=== PATIENT | male | born 1950 | race Hispanic/Latino ===

== ENCOUNTER 2017-01-10 16:39 | Emergency (ER) | payer MEDICARE, OTHER ==
[2017-01-10 16:47] VITALS: BP 164/107; RESP 20; TEMP 97.6; O2SAT 99
--- NOTE | 2017-01-10 17:02 | ED PDOC ---
HPI: General Adult Time Seen by Provider: 01/10/17 16:52 Chief Complaint (Nursing): Dizziness/Lightheaded Chief Complaint (Provider): dizziness History Per: Patient Onset/Duration Of Symptoms: Days (14) Current Symptoms Are (Timing): Intermittent Episodes Severity: Mild Additional Complaint(s): 66 year old male presents to ED with complaints of intermittent episodes of dizziness associated with frontal headache for 2 weeks. He states the symptoms worsen with certain head movements. Additionally reports for the past 3 days feeling cold like symptoms such as nasal congestion and ear fullness. Denies any fever, neck pain, vision changes, vomiting, chest pain, SOB. Past Medical History Reviewed: Historical Data, Nursing Documentation, Vital Signs Vital Signs: Last Vital Signs Temp 97.6 F 01/10/17 16:45 Pulse 87 01/10/17 17:35 Resp 20 01/10/17 16:45 BP 164/107 H 01/10/17 16:45 Pulse Ox 99 01/10/17 17:35 - Medical History PMH: Hypercholesterolemia - Surgical History Surgical History: Coronary Stent - Family History Family History: States: Unknown Family Hx - Living Arrangements Living Arrangements: With Family - Social History Current smoker - smoking cessation education provided: No Alcohol: None Drugs: Denies - Home Medications Home Medications: Ambulatory Orders Medication Instructions Recorded Amoxicillin/Clavulanate [Augmentin 1 tab PO BID #14 tab 01/10/17 875 MG-125 MG] - Allergies Allergies/Adverse Reactions: Allergies Allergy/AdvReac Type Severity Reaction Status Date / Time No Known Allergies Allergy Verified 01/10/17 16:43 Review of Systems Constitutional: Negative for: Fever Eyes: Negative for: Vision Change ENT: Positive for: Nose Congestion. Negative for: Ear Pain, Throat Pain Cardiovascular: Negative for: Chest Pain, Palpitations Respiratory: Negative for: Cough, Shortness of Breath Gastrointestinal: Negative for: Vomiting, Abdominal Pain, Diarrhea Skin: Negative for: Rash Neurological: Positive for: Headache, Dizziness. Negative for: Weakness, Numbness Physical Exam - Reviewed Nursing Documentation Reviewed: Yes Vital Signs Reviewed: Yes - Physical Exam Appears: Positive for: Well, Non-toxic, No Acute Distress Head Exam: Positive for: ATRAUMATIC, NORMAL INSPECTION (no swelling or tenderness), NORMOCEPHALIC Skin: Positive for: Warm, Dry Eye Exam: Positive for: Normal appearance, EOMI, PERRL. Negative for: Nystagmus ENT: Positive for: Pharynx Is (pink), TM Is/Are (pearly), Hearing Is (intact). Negative for: Sinus Pain/Drainage Neck: Positive for: Normal, Painless ROM Cardiovascular/Chest: Positive for: Regular Rate, Rhythm, Chest Non Tender. Negative for: Murmur Respiratory: Positive for: Normal Breath Sounds. Negative for: Rhonchi, Wheezing, Respiratory Distress Back: Positive for: Normal Inspection Extremity: Positive for: Normal ROM. Negative for: Tenderness, Pedal Edema, Deformity Neurologic/Psych: Positive for: Alert, fixture maker II-XII (grossly intact), Oriented, Mood/Affect (normal). Negative for: Motor/Sensory Deficits, Facial Droop - Laboratory Results Result Diagrams: 01/10/17 17:16 01/10/17 17:16 - ECG ECG: Positive for: Interpreted By Me, Viewed By Me ECG Rhythm: Positive for: Sinus Rhythm, 1st Degree Heart Block Rate: 87 O2 Sat by Pulse Oximetry: 99 Pulse Ox Interpretation: Normal Medical Decision Making Medical Decision Making: Impression: headache and dizziness Plan: * EKG * Labs * CT Head Progress: CT IMPRESSION: No acute intracranial pathology identified. Partial opacification of the left greater than right hypoplastic mastoid air cells; correlate clinically for possibility of mastoiditis Case discussed with Dr Mcpherson who agreed if not clinical significant then can discharge. Re-Eval: Patient seated comfortably in room in no distress. He has no dizziness or pain currently. Vital signs are stable and no fever. Patient denies any ear pain or pain around the mastoid. Area palpated with no swelling, erythema or tenderness. Explained results to patient and copy of Ct and lab reports was provided. Patient feels comfortable going home and will be discharged. Patient given follow up instructions with PCP. Instructed to return to ER if symptoms worsen or new symptoms arise including ear pain, mastoid pain, fever. Disposition - Clinical Impression Clinical Impression: Sinusitis - Patient ED Disposition Is Patient to be Admitted: No Counseled Patient/Family Regarding: Studies Performed, Diagnosis, Need For Followup, Rx Given - Disposition Referrals: Rigoberto Huffman MD [Staff Provider] - Disposition: Routine/Home Disposition Time: 17:46 Condition: STABLE Additional Instructions: Take antibiotic twice daily and be sure to finish taking all of antibiotic. Drink plenty of fluids. Please follow up with your primary doctor for further care. Return to the emergency department at any time if symptoms persist or worsen, especially develop any ear pain or pain behind ear. Prescriptions: Amoxicillin/Clavulanate [Augmentin 875 MG-125 MG] 1 tab PO BID #14 tab Instructions: Sinusitis (ED) Forms: [employer] (Croatian) - POA Present On Arrival: None
[2017-01-10 17:21] LABS: BASO % 0.3 % (0.0-2.0); EOS # 0.1 K/uL (0.0-0.7); EOS % 0.7 % (0.0-4.0); HEMATOCRIT 48.6 % (35.0-51.0); LYMPH # 0.9 K/uL (1.0-4.3); LYMPH % 11.9 % (20.0-40.0); MEAN CELL VOLUME 90.9 fl (80.0-94.0); MEAN CORPUSCULAR HEMOGLOBIN 29.9 pg (27.0-31.0); MEAN CORPUSCULAR HGB CONC 32.9 g/dL (33.0-37.0); MEAN PLATELET VOLUME 8.8 fl (7.2-11.7); MONO # 0.7 K/uL (0.0-0.8); MONO % 10.1 % (0.0-10.0); NEUT # 5.6 K/uL (1.8-7.0); RED CELL DISTRIBUTION WIDTH 13.8 % (11.5-14.5); WHITE BLOOD COUNT 7.3 K/uL (4.8-10.8)
[2017-01-10 17:32] LABS: ALB/GLOB RATIO 1.4 (1.0-2.1); CALCIUM 9.3 mg/dL (8.4-10.2); CARBON DIOXIDE 24 mmol/L (22-30); CHLORIDE 103 mmol/L (98-107); GFR AFRICAN-AMERICAN > 60; GLUCOSE,RANDOM 102 mg/dL (75-110); SODIUM 140 mmol/l (132-148)
--- NOTE | 2017-01-10 17:33 | CT ---
PROCEDURE: CT HEAD WITHOUT CONTRAST. HISTORY: headache and dizziness for 2 weeks COMPARISON: Noncontrast head CT performed 05/02/13 TECHNIQUE: Axial computed tomography images were obtained through the head/brain without intravenous contrast. Radiation dose: Total exam DLP = 958.32 mGy-cm. This CT exam was performed using one or more of the following dose reduction techniques: Automated exposure control, adjustment of the mA and/or kV according to patient size, and/or use of iterative reconstruction technique. FINDINGS: HEMORRHAGE: No intracranial hemorrhage. BRAIN: No mass effect or edema. The levi-white matter differentiation appears intact. Please note that MRI with diffusion imaging is more sensitive in the detection of acute ischemic event. VENTRICLES: Delta cisterna magna, anatomic variant. No hydrocephalus. CALVARIUM: Unremarkable. PARANASAL SINUSES: Unremarkable as visualized. No significant inflammatory changes. MASTOID AIR CELLS: Partial opacification of the left greater than right hypoplastic mastoid air cells; correlate clinically for possibility of mastoiditis. OTHER FINDINGS: None. IMPRESSION: No acute intracranial pathology identified. Partial opacification of the left greater than right hypoplastic mastoid air cells; correlate clinically for possibility of mastoiditis
[2017-01-10 17:36] LABS: ALKALINE PHOSPHATASE 66 U/L (38-126); ALT/SGPT 53 U/L (21-72); AST/SGOT 42 U/L (17-59); BLOOD UREA NITROGEN 16 mg/dl (9-20)
[2017-01-10 17:37] VITALS: PULSE 87
--- NOTE | 2017-01-11 12:08 | CARD ---
APPROVED REPORT EKG Measurement Heart [id number] <Conclusion> Sinus rhythm with 1st degree AV block Possible Left atrial enlargement Low voltage QRS Borderline ECG
== END 2017-01-10 17:58 | disposition home or self-care (01) ==
LOC: H.ER 16:39
DX: J32.9 Chronic sinusitis, unspecified (principal); E78.00 Pure hypercholesterolemia, unspecified; I44.0 Atrioventricular block, first degree; Z95.5 Presence of coronary angioplasty implant and graft